=== PATIENT | female | born 1940 | race Caucasian/White ===

== ENCOUNTER 2018-01-28 11:18 | Emergency (ER) | payer OTHER ==
[~2018-01-28] VITALS: Ht 152.4 cm; Wt 102.1 kg
[2018-01-28] MEDS ORDERED: WELLBUTRIN SR100 MG (11:23)
[2018-01-28] MEDS ORDERED: AMARYL (11:24)
[2018-01-28] MEDS ORDERED: AVAPRO75 MG (11:24)
[2018-01-28] MEDS ORDERED: TOPROL XL25 M1 (11:24)
[2018-01-28] MEDS ORDERED: HYDROCHLOROTHIA25 MG (11:25)
[2018-01-28] MEDS ORDERED: [UNRECOGNIZED DRUG - OTHER] (11:25)
[2018-01-28] MEDS ORDERED: CARAFATE1 GM/10 ML PO (14:10)
== END 2018-01-28 14:23 | disposition home or self-care (01) ==
LOC: ER 11:18
DX: K29.70 Gastritis, unspecified, without bleeding (principal)